=== PATIENT | female | born 2000 | race Caucasian/White ===

== ENCOUNTER 2023-04-17 03:33 | Emergency (ER) | payer BC, OTHER ==
[2023-04-17 03:43] VITALS: BP 137/94; PULSE 81; RESP 20; TEMP 97.6; BMI 33.9
[2023-04-17] MEDS ORDERED: DEXAMETHASONE 4 MG TABLET (FP) PO ONE (04:29)
[2023-04-17] MEDS ORDERED: DEXAMETHASONE 4 MG TABLET (FP) ONE (04:31)
== END 2023-04-17 04:48 | disposition home or self-care (01) ==
LOC: JER 03:33
DX: L29.9 Pruritus, unspecified (principal); K13.0 Diseases of lips; T78.40XA Allergy, unspecified, initial encounter
CPT/HCPCS: 99283-25